=== PATIENT | male | born 1960 | race Caucasian/White ===

== ENCOUNTER → 2024-05-16 06:21 | Day surgery (SDC) | payer OTHER, SELFPAY | LOC: GI 06:21 | PROVIDERS: ATTENDING PHYSICIAN Internal Medicine Gastroenterology | DX: Z12.11 Encounter for screening for malignant neoplasm of colon (principal); Z85.038 Personal history of other malignant neoplasm of large intestine; K64.8 Other hemorrhoids; K63.89 Other specified diseases of intestine | CPT/HCPCS: G0105 ==